=== PATIENT | male | born 2000 | race Two or more races ===

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

== ENCOUNTER 2025-07-08 12:16 | Emergency (ER) | payer BC, MEDICAID ==
[~2025-07-08] VITALS: Ht 162.6 cm; Wt 74.8 kg
[2025-07-08 12:23] VITALS: BP 157/99; TEMP 98.6
[2025-07-08] MEDS ORDERED: IBUPROFEN 600 MG TABLET ONE (13:01)
[2025-07-08] MEDS: IBUPROFEN 600 MG TABLET PO ONE (13:04)
[2025-07-08 14:00] VITALS: O2SAT 100
== END 2025-07-08 14:37 | disposition home or self-care (01) ==
LOC: ER 12:22
DX: M25.561 Pain in right knee (principal)
CPT/HCPCS: 73564-TC